=== PATIENT | male | born 1980 | race African-American/Black ===

== ENCOUNTER 2025-03-11 21:02 | Emergency (ER) | payer OTHER ==
[~2025-03-11] VITALS: Ht 180.3 cm; Wt 80.0 kg
[2025-03-11 21:04] VITALS: BP 161/107; PULSE 73; RESP 12; TEMP 37.1; O2SAT 98
== END 2025-03-12 00:56 | disposition home or self-care (01) ==
LOC: ER 21:02 → EDBD 21:02 → ER 03-12 00:56
DX: F10.129 Alcohol abuse with intoxication, unspecified (principal); Y90.9 Presence of alcohol in blood, level not specified
CPT/HCPCS: 99283

== ENCOUNTER 2025-03-24 12:30 | Emergency (ER) | payer OTHER ==
[~2025-03-24] VITALS: Ht 182.9 cm; Wt 86.0 kg
[2025-03-24 12:33] VITALS: O2SAT 100
[2025-03-24 12:40] VITALS: BP 138/97; PULSE 94; RESP 16; TEMP 36.7; O2SAT 99
[2025-03-24 13:06] LABS: BASOPHILS % 1.3 % (0.0-2.0); EOSINOPHILS % 6.7 % (0.0-5.0); HEMOGLOBIN. 13.6 g/dL (14.0-18.0); LYMPHOCYTES % 35.8 % (20.0-50.0); MEAN CORPUSCULAR HGB CONC 34.1 g/dL (31.0-37.0); MONOCYTES % 9.8 % (2.0-8.0); NEUTROPHILS % 46.4 % (40.0-76.0); PLATELET 352 x1000/uL (130-400); RED BLOOD CELL COUNT 4.12 mill/uL (4.7-6.1); WHITE BLOOD COUNT 5.1 x1000/uL (4.5-11.0)
[2025-03-24 13:14] LABS: CHLORIDE 108 mEq/L (98-107); POTASSIUM 3.6 mEq/L (3.5-5.1); SODIUM 145 mEq/L (136-145)
[2025-03-24 13:15] LABS: CARBON DIOXIDE 27 mEq/L (21-32)
[2025-03-24 13:16] LABS: CALCIUM 9.6 mg/dL (8.7-10.4)
[2025-03-24 13:20] LABS: GLUCOSE 100 mg/dL (70-105)
[2025-03-24 13:21] LABS: ETHANOL BLOOD < 10 mg/dL (<10); UREA NITROGEN BLOOD 8 mg/dL (9-23)
[2025-03-24 13:22] LABS: AMMONIA < 17 uMol/L (<32)
== END 2025-03-24 15:07 | disposition home or self-care (01) ==
LOC: ER 12:30
DX: F10.129 Alcohol abuse with intoxication, unspecified (principal); I44.4 Left anterior fascicular block; R00.0 Tachycardia, unspecified; R40.4 Transient alteration of awareness; Z79.899 Other long term (current) drug therapy; Y90.0 Blood alcohol level of less than 20 mg/100 ml
CPT/HCPCS: 36415; 80048; 80320; 80329; 82140; 85025; 93005; 99284; G0480

== ENCOUNTER 2025-05-10 23:21 | Emergency (ER) | payer OTHER ==
[~2025-05-10] VITALS: Ht 175.3 cm; Wt 80.0 kg
[2025-05-10 23:22] VITALS: TEMP 37.1; O2SAT 100
[2025-05-11 00:14] VITALS: BP 141/85; PULSE 80; RESP 17; O2SAT 96
== END 2025-05-11 01:33 | disposition left against medical advice (07) ==
LOC: ER 23:21
DX: R53.83 Other fatigue (principal); F41.9 Anxiety disorder, unspecified; Z87.820 Personal history of traumatic brain injury; Z79.899 Other long term (current) drug therapy
CPT/HCPCS: 93005; 99283